=== PATIENT | female | born 1985 ===

== ENCOUNTER 2017-02-19 16:20 | Emergency (ER) | payer OTHER ==
[2017-02-19 16:41] VITALS: PULSE 115; RESP 18; O2SAT 98
--- NOTE | 2017-02-19 16:53 | ED PDOC ---
HPI: CCC, URI, Sore Throat Time Seen by Provider: 02/19/17 16:35 Chief Complaint (Provider): sore throat History Per: Patient History/Exam Limitations: no limitations Have you had recent travel within the past 21 days to any of the following countries: [place], [place], [place] or [place]?: No Onset/Duration Of Symptoms: Days (x 3) Current Symptoms Are (Timing): Still Present Sick Contacts (Context): None Associated Symptoms: Fever, Chills, Sore Throat. denies: Cough, Sputum, Nausea , Vomiting Additional Complaint(s): Lenka Guardado is a 31 year old female, with no previous medical history, who presents to the ED with complaints of a sore throat accompanied by fever and chills ongoing for 3 days. Patient denies any vomiting. Of note, patient reports no menstrual cycle for the past 2 months but is negative according to home test. PMD: none provided Past Medical History Reviewed: Historical Data, Nursing Documentation, Vital Signs Vital Signs: Last Vital Signs Temp 99.7 F H 02/19/17 18:21 Pulse 115 H 02/19/17 16:38 Resp 18 02/19/17 16:38 BP 150/99 H 02/19/17 17:00 Pulse Ox 98 02/19/17 16:38 - Medical History PMH: No Chronic Diseases - Surgical History Surgical History: No Surg Hx - Family History Family History: States: Unknown Family Hx - Home Medications Home Medications: Ambulatory Orders Medication Instructions Recorded Polymyxin/Trimethoprim Sulfate 100 drop OD BID #1 bottle 02/05/17 [Polytrim Ophth Soln] Acetaminophen [Acetaminophen Extra 2 tab PO Q6 PRN #24 tablet 02/19/17 Strength] Ibuprofen [Motrin] 600 mg PO Q8 PRN #21 tab 02/19/17 Penicillin VK [Pen-Vee K] 1 tab PO QID #40 tab 02/19/17 - Allergies Allergies/Adverse Reactions: Allergies Allergy/AdvReac Type Severity Reaction Status Date / Time No Known Allergies Allergy Verified 02/05/17 21:33 Review of Systems ROS Statement: Except As Marked, All Systems Reviewed And Found Negative Constitutional: Positive for: Fever, Chills ENT: Positive for: Throat Pain Gastrointestinal: Negative for: Vomiting Physical Exam - Reviewed Nursing Documentation Reviewed: Yes Vital Signs Reviewed: Yes - Physical Exam Appears: Positive for: Well, Non-toxic, No Acute Distress Skin: Positive for: Normal Color, Warm, Dry ENT: Positive for: Pharyngeal Erythema, Tonsillar Exudate (small on the left tonisl), Tonsillar Swelling Cardiovascular/Chest: Positive for: Regular Rate, Rhythm Respiratory: Positive for: CNT, Normal Breath Sounds Neurologic/Psych: Positive for: Alert, Oriented - Laboratory Results Urine POC: Negative - Progress ED Course And Treament: RAPID STREP: POS DECADRON 10MG IM X 1 DOSE MOTRIN 600 MG X 1 DOSE BP: 150/99 Medical Decision Making Medical Decision Making: Initial Impression: sore throat Initial Plan: * urine * rapid strep * decadron injection * motrin * reevaluation Scribe Attestation: Documented by Libby Tariq, acting as a scribe for Courtney Parr PA-C. Provider Scribe Attestation: All medical record entries made by the Scribe were at my direction and personally dictated by me. I have reviewed the chart and agree that the record accurately reflects my personal performance of the history, physical exam, medical decision making, and the department course for this patient. I have also personally directed, reviewed, and agree with the discharge instructions and disposition. Disposition - Clinical Impression Clinical Impression: Pharyngitis - Patient ED Disposition Is Patient to be Admitted: No - Disposition Referrals: [facility] [Outside] Disposition: Routine/Home Disposition Time: 18:35 Condition: FAIR Prescriptions: Acetaminophen [Acetaminophen Extra Strength] 2 tab PO Q6 PRN #24 tablet PRN Reason: Fever >100.4 F Ibuprofen [Motrin] 600 mg PO Q8 PRN #21 tab PRN Reason: Fever >100.4 F Penicillin VK [Pen-Vee K] 1 tab PO QID #40 tab Instructions: Pharyngitis (ED) Print Language: SETSWANA
[2017-02-19 18:22] VITALS: TEMP 99.7
[2017-02-19 18:37] VITALS: BP 150/99
== END 2017-02-19 18:41 | disposition home or self-care (01) ==
LOC: H.ER 16:20
DX: J02.0 Streptococcal pharyngitis (principal); R50.9 Fever, unspecified

== ENCOUNTER 2017-09-05 16:52 | Inpatient (IN) | payer OTHER ==
--- NOTE | 2017-09-05 17:55 | ED PDOC ---
HPI: Abdomen Time Seen by Provider: 09/05/17 17:47 Chief Complaint (Nursing): Abdominal Pain History Per: Patient Onset/Duration Of Symptoms: Days (7) Current Symptoms Are (Timing): Still Present Severity: Mild Pain Scale Rating Of: 2 Location Of Pain/Discomfort: Suprapubic Quality Of Discomfort: Unable To Describe Associated Symptoms: Nausea, Vomiting Exacerbating Factors: None Alleviating Factors: None Additional Complaint(s): Suprapubic pain assoc with nausea and vomiting x 7 days. No diarrhea or dysuria. No fever. LMP Jul 26 Abnormal Vaginal Bleeding: No Past Medical History Vital Signs: Last Vital Signs Temp 98 F 09/05/17 17:20 Pulse 68 09/05/17 17:20 Resp 20 09/05/17 17:20 BP 148/97 H 09/05/17 17:20 Pulse Ox 96 09/05/17 17:55 - Medical History PMH: No Chronic Diseases - Family History Family History: States: Unknown Family Hx - Home Medications Home Medications: Ambulatory Orders Medication Instructions Recorded Polymyxin/Trimethoprim Sulfate 100 drop OD BID #1 bottle 02/05/17 [Polytrim Ophth Soln] Acetaminophen [Acetaminophen Extra 2 tab PO Q6 PRN #24 tablet 02/19/17 Strength] Ibuprofen [Motrin] 600 mg PO Q8 PRN #21 tab 02/19/17 Penicillin VK [Pen-Vee K] 1 tab PO QID #40 tab 02/19/17 - Allergies Allergies/Adverse Reactions: Allergies Allergy/AdvReac Type Severity Reaction Status Date / Time No Known Allergies Allergy Verified 02/05/17 21:33 Review of Systems ROS Statement: Except As Marked, All Systems Reviewed And Found Negative Gastrointestinal: Positive for: Nausea, Vomiting, Abdominal Pain. Negative for : Diarrhea Genitourinary Female: Negative for: Dysuria, Frequency, Vaginal Bleeding Physical Exam - Physical Exam Appears: Positive for: Non-toxic, No Acute Distress Skin: Positive for: Normal Color, Warm, DRY Gastrointestinal/Abdominal: Positive for: Bowel Sounds, Soft. Negative for: Tenderness - Laboratory Results Result Diagrams: 09/05/17 18:10 09/05/17 18:10 - ECG O2 Sat by Pulse Oximetry: 96 Disposition - Clinical Impression Clinical Impression: Abdominal pain - Patient ED Disposition Is Patient to be Admitted: Transfer of Care - Disposition Disposition: Transfer of Care Disposition Time: 19:00 Condition: FAIR Forms: [facility] (Azeri) Patient Signed Over To: Luis Alberto Sierra
[2017-09-05 18:36] LABS: BASO # 0.1 K/uL (0.0-0.2); BASO % 1.1 % (0.0-2.0); EOS # 0.5 K/uL (0.0-0.7); EOS % 4.8 % (0.0-4.0); HEMATOCRIT 41.4 % (34.0-47.0); LYMPH # 3.5 K/uL (1.0-4.3); LYMPH % 32.7 % (20.0-40.0); MEAN CELL VOLUME 84.9 fl (81.0-99.0); MEAN CORPUSCULAR HEMOGLOBIN 27.8 pg (27.0-31.0); MEAN CORPUSCULAR HGB CONC 32.7 g/dL (33.0-37.0); MEAN PLATELET VOLUME 9.8 fl (7.2-11.7); MONO # 0.8 K/uL (0.0-0.8); MONO % 7.6 % (0.0-10.0); NEUT # 5.7 K/uL (1.8-7.0); NEUT % 53.8 % (50.0-75.0); NRBC % 0.1 % (0.0-0.0); RED CELL DISTRIBUTION WIDTH 14.3 % (11.5-14.5); WHITE BLOOD COUNT 10.7 K/uL (4.8-10.8)
[2017-09-05 18:56] LABS: ALB/GLOB RATIO 1.3 (1.0-2.1); ALKALINE PHOSPHATASE 82 U/L (38-126); ALT/SGPT 127 U/L (9-52); AST/SGOT 68 U/L (14-36); BILIRUBIN,TOTAL 0.4 mg/dl (0.2-1.3); BLOOD UREA NITROGEN 10 mg/dl (7-17); CALCIUM 9.2 mg/dL (8.4-10.2); CARBON DIOXIDE 24 mmol/L (22-30); CHLORIDE 107 mmol/L (98-107); GFR AFRICAN-AMERICAN > 60; GLUCOSE,RANDOM 107 mg/dL (65-105); POTASSIUM 4.3 MMOL/L (3.6-5.0); SODIUM 140 mmol/l (132-148); TOTAL PROTEIN 7.9 G/DL (6.3-8.2)
--- NOTE | 2017-09-05 19:07 | ED PDOC ---
- Laboratory Results Result Diagrams: 09/05/17 18:10 09/05/17 18:10 - ECG O2 Sat by Pulse Oximetry: 96 (RA) Pulse Ox Interpretation: Normal Medical Decision Making Medical Decision Makin:00 Patient signed over to me from Dr. Ferrari. Ultrasound pending. 19:59 Transvaginal ultrasound reviewed. Findings noted as follows: FINDINGS: Uterus/cervix: No acute findings. The endometrial stripe is normal in appearance and thickness with a maximal thickness of 8 mm. Right ovary: The right ovary is suboptimally visualized but grossly normal in size and appearance. Doppler imaging demonstrates vascular flow in the right ovary. No right adnexal mass is visualized. Left ovary: The left ovary is suboptimally visualized but grossly normal in size and appearance. Doppler imaging demonstrates vascular flow in the left ovary. No left adnexal mass is visualized. Free fluid: No pelvic free fluid is visualized. IMPRESSION: No evident acute abnormality 20:10 Patient reports improvement of symptoms. Labs were not clinically significant for any abnormalities. Patient is stable for discharge. Zofran prescribed. Clinical impression: nonspecific abdominal pain 20:26 Patient voices new complaint of right upper quadrant pain. Denies history of gallstones. Will give Toradol and Pepcid before discharge. Patient states that she will follow up with her PCP at [facility]. Time: 21:15 Patient reports no improvement in pain. Ordered US Abdomen and IV morphine. Time: 21:59 US Abdomen: FINDINGS: Limitations: Evaluation is limited by the patient's body habitus and by overlying bowel gas. Liver: Coarse, echogenic liver parenchyma. Hepatomegaly. No hepatic lesion is identified. Hepatopetal flow in the main portal vein. Gallbladder: The gallbladder is moderately distended. There is a 2 cm nonmobile gallstone in the gallbladder neck. Mild gallbladder wall thickening, measuring 3 mm in thickness. No evident pericholecystic fluid. Positive sonographic Galarza sign per the certified medical asst's report. Common bile duct: No biliary ductal dilation. Pancreas: No acute findings of the visualized portion of the pancreas. Right kidney: No acute findings. Aorta: The imaged abdominal aorta is normal in caliber. Inferior vena cava: The imaged IVC is normal in caliber. IMPRESSION: 1. Gallbladder findings as described above are most consistent with acute cholecystitis. 2. Hepatomegaly. Coarse, echogenic liver parenchyma is most consistent with diffuse fatty infiltration of the liver. Time: 23:10 * Patient will be admitted inpatient to Med/Surg for acute cholecystitis, under the service of Dr. Khoury. * Dr. Munoz vice president of customer service made aware of patient. * Awaiting call back from Dr. Mckinney, surgical attending on-call. * Patient started on IV zosyn. Time: 23:33 * Dr. Mckinney returned call, and is aware of patient. Scribe Attestation: Documented by Meme Harrington & Yeimi Cruz, acting as a scribes for Luis Alberto Sierra MD. Provider Scribe Attestation: All medical record entries made by the Scribe were at my direction and personally dictated by me. I have reviewed the chart and agree that the record accurately reflects my personal performance of the history, physical exam, medical decision making, and the department course for this patient. I have also personally directed, reviewed, and agree with the discharge instructions and disposition. Disposition Discussed With DrAnthony: Adrián Mckinney (Dr Blackmon) Comment: Dr Khoury aware Counseled Patient/Family Regarding: Studies Performed - Clinical Impression Clinical Impression: Cholecystitis, Cholelithiasis - POA Present On Arrival: None - Disposition Disposition: Admitted as In-Patient Disposition Time: 23:10 Condition: FAIR
[2017-09-05] MEDS ORDERED: Morphine 4 MG/ML VIAL IVP ONE (21:11)
[2017-09-05] MEDS ORDERED: Morphine 4 MG/ML VIAL ONE (21:21)
[2017-09-05] MEDS ORDERED: Piperacillin/Tazobact 3.375 GM in Sodium Chloride 0.9% 100 ML IV STA (23:11)
[2017-09-05] MEDS ORDERED: Sodium Chloride 0.9% 1,000 ML IV SCH (23:45)
--- NOTE | 2017-09-05 23:46 | CP.PCM.HP ---
History of Present Illness - History of Present Illness History of Present Illness: CC: Abd pain/suprapubic pain HPI: This is a 32 y/o female with ?cholelithiasis who presents with initially suprapubic pain, but then RUQ pain associated with n/v x 7 days. Nothing makes it better or worse. No f/c. No diarrhea. No CP/SOB. LMP Jul 26 ROS: 14 systems reviewed, negative other than HPI MHx: ?Cholelithiasis SHx: None Allergies: NKDA Medication: as per med rec Family Hx: Reviewed, no relevant findings Social Hx: Lives , no tobacco, no significant EtOH Present on Admission - Present on Admission Any Indicators Present on Admission: No Past Patient History - Past Social History Smoking Status: Never Smoked - PSYCHIATRIC Hx Substance Use: No - ANESTHESIA Hx Anesthesia: No Meds Home Medications: Home Medication List Medication Instructions Recorded Confirmed Type Ondansetron ODT [Zofran ODT] 4 mg PO Q6 PRN #16 odt 09/05/17 Rx Allergies/Adverse Reactions: Allergies Allergy/AdvReac Type Severity Reaction Status Date / Time No Known Allergies Allergy Verified 02/05/17 21:33 Physical Exam - Constitutional Appears: No Acute Distress - Head Exam Head Exam: ATRAUMATIC, NORMOCEPHALIC - Eye Exam Eye Exam: EOMI, PERRL - Neck Exam Neck exam: Positive for: Full Rom - Respiratory Exam Respiratory Exam: Clear to Auscultation Bilateral, NORMAL BREATHING PATTERN - Cardiovascular Exam Cardiovascular Exam: REGULAR RHYTHM, +S1, +S2 - GI/Abdominal Exam GI & Abdominal Exam: Normal Bowel Sounds, Soft - Extremities Exam Extremities exam: Positive for: normal inspection - Neurological Exam Neurological exam: Alert, CN II-XII Intact, Oriented x3 - Psychiatric Exam Psychiatric exam: Normal Affect, Normal Mood - Skin Skin Exam: Dry, Warm Results - Vital Signs Recent Vital Signs: Last Vital Signs Temp 98 F 09/05/17 17:20 Pulse 68 09/05/17 17:20 Resp 20 09/05/17 17:20 BP 148/97 H 09/05/17 17:20 Pulse Ox 96 09/05/17 23:42 - Labs Result Diagrams: 09/05/17 18:10 09/05/17 18:10 Labs: Laboratory Results - last 24 hr 09/05/17 09/05/17 18:10 18:10 WBC 10.7 RBC 4.87 Hgb 13.6 Hct 41.4 MCV 84.9 MCH 27.8 MCHC 32.7 L RDW 14.3 Plt Count 222 MPV 9.8 Neut % (Auto) 53.8 Lymph % (Auto) 32.7 [place] % (Auto) 7.6 Eos % (Auto) 4.8 H Baso % (Auto) 1.1 Neut # 5.7 Lymph # 3.5 [place] # 0.8 Eos # 0.5 Baso # 0.1 Sodium 140 Potassium 4.3 Chloride 107 Carbon Dioxide 24 Anion Gap 13 BUN 10 Creatinine 0.6 L Est GFR ( Amer) > 60 Est GFR (Non-Af Amer) > 60 Random Glucose 107 H Calcium 9.2 Total Bilirubin 0.4 AST 68 H ALT 127 H Alkaline Phosphatase 82 Total Protein 7.9 Albumin 4.4 Globulin 3.5 Albumin/Globulin Ratio 1.3 - Imaging and Cardiology US - abdomen Status: Image reviewed by me (FINDINGS:) Assessment & Plan (1) Abdominal pain Assessment and Plan: 32 y/o female presenting with initially suprapubic pain, but then transformed to RUQ abd pain and found to have cholecystitis. -NPO, IVF -Continue Zosyn as started in ER -Zofran for n/v, morphine IV per pain scale -Surgical consult in AM -SCDs for DVT PPx Status: Acute
[2017-09-05] MEDS ORDERED: Morphine 4 MG/ML VIAL IVP PRN ×2 (23:52)
[2017-09-06] MEDS: Piperacillin/Tazobact 3.375 GM in Sodium Chloride 0.9% 100 ML IVPB SCH ×3 (04:30→17:23)
--- NOTE | 2017-09-06 05:17 | CP.PCM.CON ---
History of Present Illness - History of Present Illness History of Present Illness: General Surgery Consult Re: cholecystitis HPI: 32F presented with initially suprapubic pain which resolved, but then began having RUQ pain. She reports a hx of cholelithiasis with 5 episodes of biliary colic in the past. Current episode is the most severe and associated with nausea and bloating. No F/C, emesis, chest pain, SOB, diarrhea, constipation, dysuria. PMH: Hx cholelithiasis PSH: Denies SH: No tobacco, EtOH, or drug use All: NKDA Meds: Denies Review of Systems - Review of Systems All systems: reviewed and no additional remarkable complaints except (as per HPI ) Past Patient History - Past Medical History & Family History Past Medical History?: No - Past Social History Smoking Status: Never Smoked - CARDIAC Hx Cardiac Disorders: No - PULMONARY Hx Respiratory Disorders: No - NEUROLOGICAL Hx Neurological Disorder: No - HEENT Hx HEENT Problems: No - RENAL Hx Chronic Kidney Disease: No - ENDOCRINE/METABOLIC Hx Endocrine Disorders: No - HEMATOLOGICAL/ONCOLOGICAL Hx Blood Disorders: No Hx AIDS: No Hx Human Immunodeficiency Virus (HIV): No - INTEGUMENTARY Hx Dermatological Problems: No - MUSCULOSKELETAL/RHEUMATOLOGICAL Hx Musculoskeletal Disorders: No Hx Falls: No - GASTROINTESTINAL Hx Gastrointestinal Disorders: No - GENITOURINARY/GYNECOLOGICAL Hx Genitourinary Disorders: No - PSYCHIATRIC Hx Psychophysiologic Disorder: No Hx Substance Use: No - SURGICAL HISTORY Hx Surgeries: No Other/Comment: NSD x4 - ANESTHESIA Hx Anesthesia: No Meds Allergies/Adverse Reactions: Allergies Allergy/AdvReac Type Severity Reaction Status Date / Time No Known Allergies Allergy Verified 02/05/17 21:33 - Medications Medications: Current Medications Sodium Chloride (Sodium Chloride 0.9%) 1,000 mls @ 125 mls/hr IV .Q8H [facility] Stop: 09/06/17 15:44 Last Admin: 09/06/17 02:13 Dose: 125 mls/hr Piperacillin Sod/Tazobactam (Sod 3.375 gm/ Sodium Chloride) 100 mls @ 100 mls/ hr IVPB Q6 DELLA PRN Reason: Protocol Last Admin: 09/06/17 04:30 Dose: 100 mls/hr Influenza Virus Vaccine (Afluria (Pf)(18yr & Older)) 0.5 ml IM .ONCE ONE Stop: 09/06/17 10:01 Morphine Sulfate (Morphine) 1 mg IVP Q4 PRN PRN Reason: Pain, Mild (1-3) Morphine Sulfate (Morphine) 2 mg IVP Q4 PRN PRN Reason: Pain, moderate (4-7) Ondansetron HCl (Zofran Inj) 4 mg IVP Q6 PRN PRN Reason: Nausea/Vomiting Physical Exam - Constitutional Appears: Non-toxic, No Acute Distress - Head Exam Head Exam: ATRAUMATIC, NORMOCEPHALIC - Eye Exam Eye Exam: EOMI. absent: Scleral icterus - ENT Exam ENT Exam: Mucous Membranes Moist Additional comments: trachea midline - Respiratory Exam Respiratory Exam: NORMAL BREATHING PATTERN. absent: Respiratory Distress - GI/Abdominal Exam GI & Abdominal Exam: Distended (mild), Guarding, Soft, Tenderness (in RUQ and epigastrum). absent: Firm, Rebound, Rigid - Rectal Exam Rectal Exam: Deferred - Extremities Exam Extremities exam: Positive for: normal capillary refill. Negative for: calf tenderness - Back Exam Back exam: absent: CVA tenderness (L), CVA tenderness (R) - Neurological Exam Neurological exam: Alert, Oriented x3 - Psychiatric Exam Psychiatric exam: Normal Affect, Normal Mood - Skin Skin Exam: Dry, Warm Results - Vital Signs Recent Vital Signs: Last Vital Signs Temp 97.6 F 09/06/17 01:55 Pulse 69 09/06/17 01:55 Resp 17 09/06/17 02:01 BP 127/73 09/06/17 01:55 Pulse Ox 96 09/06/17 04:18 - Labs Result Diagrams: 09/05/17 18:10 09/05/17 18:10 Labs: Laboratory Results - last 24 hr 09/05/17 09/05/17 09/06/17 18:10 18:10 00:44 WBC 10.7 RBC 4.87 Hgb 13.6 Hct 41.4 MCV 84.9 MCH 27.8 MCHC 32.7 L RDW 14.3 Plt Count 222 MPV 9.8 Neut % (Auto) 53.8 Lymph % (Auto) 32.7 [place] % (Auto) 7.6 Eos % (Auto) 4.8 H Baso % (Auto) 1.1 Neut # 5.7 Lymph # 3.5 [place] # 0.8 Eos # 0.5 Baso # 0.1 Sodium 140 Potassium 4.3 Chloride 107 Carbon Dioxide 24 Anion Gap 13 BUN 10 Creatinine 0.6 L Est GFR ( Amer) > 60 Est GFR (Non-Af Amer) > 60 Random Glucose 107 H Lactic Acid 1.4 Calcium 9.2 Total Bilirubin 0.4 AST 68 H ALT 127 H Alkaline Phosphatase 82 Total Protein 7.9 Albumin 4.4 Globulin 3.5 Albumin/Globulin Ratio 1.3 - Imaging and Cardiology US - abdomen Status: Image reviewed by me (reviwed prelim report) Assessment & Plan - Assessment and Plan (Free Text) Assessment: 32F with Cholelithiasis and biliary colic Plan: NPO IVF Analgesia Antiemetic Will D/W Dr. Hakn Blackmon PGY4
[2017-09-06 07:08] LABS: HEMATOCRIT 39.6 % (34.0-47.0); MEAN CELL VOLUME 84.5 fl (81.0-99.0); MEAN CORPUSCULAR HEMOGLOBIN 27.4 pg (27.0-31.0); MEAN CORPUSCULAR HGB CONC 32.4 g/dL (33.0-37.0); WHITE BLOOD COUNT 9.2 K/uL (4.8-10.8)
[2017-09-06 07:34] LABS: PARTIAL THROMBOPLASTIN TIME 28.8 Seconds (25.6-37.1)
[2017-09-06 07:40] LABS: ALB/GLOB RATIO 1.2 (1.0-2.1); ALKALINE PHOSPHATASE 72 U/L (38-126); ALT/SGPT 107 U/L (9-52); AST/SGOT 51 U/L (14-36); BILIRUBIN,TOTAL 0.8 mg/dl (0.2-1.3); BLOOD UREA NITROGEN 11 mg/dl (7-17); CALCIUM 8.5 mg/dL (8.4-10.2); CARBON DIOXIDE 24 mmol/L (22-30); CHLORIDE 108 mmol/L (98-107); GFR AFRICAN-AMERICAN > 60; GLUCOSE,RANDOM 110 mg/dL (65-105); POTASSIUM 4.1 MMOL/L (3.6-5.0); SODIUM 141 mmol/l (132-148); TOTAL PROTEIN 7.2 G/DL (6.3-8.2)
--- NOTE | 2017-09-06 08:58 | US ---
HISTORY: abd pain COMPARISON: None available. TECHNIQUE: Grayscale, color Doppler and spectral evaluation of the pelvis performed transvaginally. FINDINGS: UTERUS: Measures 9.4 x 4.9 x 5.4 cm. Anteverted. Normal in size and appearance. No fibroid or other mass lesion seen. ENDOMETRIUM: Measures 8 mm in diameter. Unremarkable. CERVIX: No cervical abnormality identified. RIGHT OVARY: Measures 3.0 x 1.3 x 1.3 cm. No solid mass. Normal flow. LEFT OVARY: Measures 2.3 x 2.2 x 1.0 cm. No solid mass. Normal flow. FREE FLUID: No significant free fluid noted. OTHER FINDINGS: None. IMPRESSION: Unremarkable pelvic ultrasound.
--- NOTE | 2017-09-06 09:04 | US ---
HISTORY: RUQ pain COMPARISON: None. TECHNIQUE: Sonographic evaluation of the right upper quadrant of the abdomen. FINDINGS: LIVER: Enlarged, measuring 21.4 cm in length. Increased echogenicity of the liver parenchyma. No mass. No intrahepatic bile duct dilatation. GALLBLADDER: Non mobile gallstone in the gallbladder neck measuring approximately 2.0 centimeter. Borderline wall thickening. Sonographic Galarza sign was elicited. COMMON BILE DUCT: Measures 4 mm. No stones. No dilatation. PANCREAS: Unremarkable as visualized. No mass. No ductal dilatation. RIGHT KIDNEY: Measures 11.1 x 4.0 x 3.1 cm in length. Normal echogenicity. No calculus, mass, or hydronephrosis. AORTA: No aneurysmal dilatation. IVC: Unremarkable. OTHER FINDINGS: None . IMPRESSION: Acute cholecystitis. Hepatomegaly with steatosis.
[2017-09-06] MEDS ORDERED: Influenza Vaccine 18yr & older 0.5 ML/45 MCG SYR IM ONE (10:00)
[2017-09-06] MEDS ORDERED: Rocuronium 10 mg/ml (5 ml) ONE (12:18)
[2017-09-06] MEDS ORDERED: Propofol 10 mg/ml Inj (20 ML) ONE (12:18)
[2017-09-06] MEDS ORDERED: Lidocaine 4% (Laryng-O-Jet) Kit MM ONE (12:18)
[2017-09-06] MEDS ORDERED: Succinylcholine 200 mg/10 ml Inj IV ONE (12:18)
--- NOTE | 2017-09-06 12:37 | CP.PCM.PN ---
Subjective - Date & Time of Evaluation Date of Evaluation: 09/06/17 Time of Evaluation: 14:30 - Subjective Subjective: Patient seen and examined post op . Still under anesthesia s/p lap cholecystectomy Hemodynamically stable Objective - Vital Signs/Intake and Output Vital Signs (last 24 hours): Temp Pulse Resp BP Pulse Ox 98.1 F 62 18 116/71 96 09/06/17 08:28 09/06/17 08:28 09/06/17 08:28 09/06/17 08:28 09/06/17 08:28 - Medications Medications: Current Medications Sodium Chloride (Sodium Chloride 0.9%) 1,000 mls @ 125 mls/hr IV .Q8H DELLA Stop: 09/06/17 15:44 Last Admin: 09/06/17 02:13 Dose: 125 mls/hr Piperacillin Sod/Tazobactam (Sod 3.375 gm/ Sodium Chloride) 100 mls @ 100 mls/ hr IVPB Q6 DELLA PRN Reason: Protocol Last Admin: 09/06/17 12:15 Dose: 100 mls/hr Morphine Sulfate (Morphine) 1 mg IVP Q4 PRN PRN Reason: Pain, Mild (1-3) Morphine Sulfate (Morphine) 2 mg IVP Q4 PRN PRN Reason: Pain, moderate (4-7) Ondansetron HCl (Zofran Inj) 4 mg IVP Q6 PRN PRN Reason: Nausea/Vomiting - Labs Labs: 09/06/17 06:15 09/06/17 06:15 PT 11.3 Seconds (9.8-13.1) 09/06/17 06:15 INR 1.0 (0.9-1.2) 09/06/17 06:15 APTT 28.8 Seconds (25.6-37.1) 09/06/17 06:15 - Constitutional Appears: Non-toxic, No Acute Distress - Head Exam Head Exam: ATRAUMATIC, NORMAL INSPECTION, NORMOCEPHALIC - Eye Exam Eye Exam: EOMI, Normal appearance, PERRL Pupil Exam: NORMAL ACCOMODATION - ENT Exam ENT Exam: Mucous Membranes Moist, Normal Exam - Neck Exam Neck Exam: Full ROM, Normal Inspection - Respiratory Exam Respiratory Exam: Clear to Ausculation Bilateral, NORMAL BREATHING PATTERN. absent: Rales, Rhonchi, Wheezes - Cardiovascular Exam Cardiovascular Exam: REGULAR RHYTHM, RRR, +S1, +S2. absent: JVD - GI/Abdominal Exam GI & Abdominal Exam: Soft, Normal Bowel Sounds. absent: Distended, Guarding, Tenderness, Rebound - Rectal Exam Rectal Exam: Deferred - Extremities Exam Extremities Exam: Full ROM, Normal Capillary Refill, Normal Inspection - Back Exam Back Exam: NORMAL INSPECTION - Neurological Exam Neurological Exam: Alert, Awake - Psychiatric Exam Psychiatric exam: Normal Affect - Skin Skin Exam: Dry, Intact, Normal Color, Warm Assessment and Plan - Assessment and Plan (Free Text) Assessment: 32 y/o female with no PMH presented with initially suprapubic pain, but then transformed to RUQ abd pain and found to have cholecystitis.Surgery consulted and patient underwent lap cholecystectomy 1. Cholelithiasis and acute cholecystitis s/p lap cholecystectomy continue pain management Start low fat diet , ambulation , incentive spirometry use SCD for DVt prophylaxis
[2017-09-06] MEDS ORDERED: Lidocaine 1% Inj (20ml) ONE (13:19)
[2017-09-06] MEDS ORDERED: Bupivacaine 0.5% Inj(30mL) ONE (13:19)
[2017-09-06] MEDS ORDERED: ceFAZolin IV 1 gm in Dextrose 0 GM/0 ML BAG IVPB ONE (13:19)
[2017-09-06] MEDS ORDERED: Lactated Ringer's 1,000 ML IV ONE ×2 (13:22→14:00)
[2017-09-06] MEDS ORDERED: Midazolam 2 MG/2 ML VIAL ONE (13:24)
[2017-09-06] MEDS ORDERED: Dexamethasone 4 mg/1 ml ONE (13:38)
[2017-09-06] MEDS ORDERED: Neostigmine Methylsulfate 3mg/3ml Syringe IV ONE (14:19)
[2017-09-06] MEDS ORDERED: Neostigmine Methylsulfate 2 MG/2 ML ML IV ONE (14:19)
[2017-09-06] MEDS ORDERED: Desflurane Inhalation Anesthetic Liq (240 ml) ONE (14:30)
[2017-09-06] MEDS ORDERED: Morphine 4 MG/ML VIAL IVP PRN (14:55)
[2017-09-06] MEDS ORDERED: Oxycodone/Acetaminophen 5/325 mg Tab PO PRN (14:55)
[2017-09-06] MEDS ORDERED: Sodium Chloride 0.9% 1,000 ML IV SCH (14:56)
--- NOTE | 2017-09-06 14:57 | PCM.SURG1 ---
Surgeon's Initial Post Op Note - Surgeon's Notes Surgeon: Dr. Mckinney Pet Nutrition Specialist: Dr. Gleason PGY-3, Dr. Muller PGY-1 Type of Anesthesia: General Endo Pre-Operative Diagnosis: Acute cholecystitis Operative Findings: cholelithiasis in neck Post-Operative Diagnosis: Acute cholecystitis Operation Performed: Laparoscopic cholecystectomy Specimen/Specimens Removed: gallbladder Estimated Blood Loss: EBL {In ML}: 15 Blood Products Given: N/A Drains Used: No Drains Post-Op Condition: Fair Date of Surgery/Procedure: 09/06/17 Time of Surgery/Procedure: 14:58
[2017-09-06] MEDS ORDERED: HYDROmorphone 0.5 mg/0.5 ml ISec IVP PRN (14:58)
[2017-09-06] MEDS ORDERED: Dexamethasone 4 mg/1 ml IVP PRN (14:58)
[2017-09-06] MEDS ORDERED: Lactated Ringer's 1,000 ML IV SCH (15:00)
--- NOTE | 2017-09-06 19:49 | CP.PCM.DIS ---
Provider - Provider Date of Admission: 09/05/17 23:10 Attending physician: Rhonda Khoury MD Primary care physician: None Consults: surgery consult Time Spent in preparation of Discharge (in minutes): 10 Hospital Course - Lab Results Lab Results: Most Recent Lab Values WBC 9.2 K/uL (4.8-10.8) 09/06/17 06:15 RBC 4.69 Mil/uL (3.80-5.20) 09/06/17 06:15 Hgb 12.9 g/dL (12.0-16.0) 09/06/17 06:15 Hct 39.6 % (34.0-47.0) 09/06/17 06:15 MCV 84.5 fl (81.0-99.0) 09/06/17 06:15 MCH 27.4 pg (27.0-31.0) 09/06/17 06:15 MCHC 32.4 g/dL (33.0-37.0) L 09/06/17 06:15 RDW 14.0 % (11.5-14.5) 09/06/17 06:15 Plt Count 200 K/uL (130-400) 09/06/17 06:15 MPV 9.8 fl (7.2-11.7) 09/05/17 18:10 Neut % (Auto) 53.8 % (50.0-75.0) 09/05/17 18:10 Lymph % (Auto) 32.7 % (20.0-40.0) 09/05/17 18:10 [place] % (Auto) 7.6 % (0.0-10.0) 09/05/17 18:10 Eos % (Auto) 4.8 % (0.0-4.0) H 09/05/17 18:10 Baso % (Auto) 1.1 % (0.0-2.0) 09/05/17 18:10 Neut # 5.7 K/uL (1.8-7.0) 09/05/17 18:10 Lymph # 3.5 K/uL (1.0-4.3) 09/05/17 18:10 [place] # 0.8 K/uL (0.0-0.8) 09/05/17 18:10 Eos # 0.5 K/uL (0.0-0.7) 09/05/17 18:10 Baso # 0.1 K/uL (0.0-0.2) 09/05/17 18:10 PT 11.3 Seconds (9.8-13.1) 09/06/17 06:15 INR 1.0 (0.9-1.2) 09/06/17 06:15 APTT 28.8 Seconds (25.6-37.1) 09/06/17 06:15 Sodium 141 mmol/l (132-148) 09/06/17 06:15 Potassium 4.1 MMOL/L (3.6-5.0) 09/06/17 06:15 Chloride 108 mmol/L (98-107) H 09/06/17 06:15 Carbon Dioxide 24 mmol/L (22-30) 09/06/17 06:15 Anion Gap 13 (10-20) 09/06/17 06:15 BUN 11 mg/dl (7-17) 09/06/17 06:15 Creatinine 0.8 mg/dl (0.7-1.2) 09/06/17 06:15 Est GFR ( Amer) > 60 09/06/17 06:15 Est GFR (Non-Af Amer) > 60 09/06/17 06:15 Random Glucose 110 mg/dL (65-105) H 09/06/17 06:15 Lactic Acid 1.4 MMOL/L (0.7-2.1) 09/06/17 00:44 Calcium 8.5 mg/dL (8.4-10.2) 09/06/17 06:15 Total Bilirubin 0.8 mg/dl (0.2-1.3) 09/06/17 06:15 AST 51 U/L (14-36) H D 09/06/17 06:15 ALT 107 U/L (9-52) H 09/06/17 06:15 Alkaline Phosphatase 72 U/L (38-126) 09/06/17 06:15 Total Protein 7.2 G/DL (6.3-8.2) 09/06/17 06:15 Albumin 3.9 g/dL (3.5-5.0) 09/06/17 06:15 Globulin 3.3 gm/dL (2.2-3.9) 09/06/17 06:15 Albumin/Globulin Ratio 1.2 (1.0-2.1) 09/06/17 06:15 Blood Type O POSITIVE 09/06/17 12:59 Blood Type Confirm O POSITIVE 09/06/17 14:03 Antibody Screen Negative 09/06/17 12:59 BBK History Checked No verified bt 09/06/17 12:59 - Hospital Course Hospital Course: 32 y/o female with no PMH presented with initially suprapubic pain, but then transformed to RUQ abd pain and found to have cholecystitis.Surgery consulted and patient underwent lap cholecystectomy. At present Hemoddynamically stable, afebrile, voiding freely, no abdominal pain , tolerating Po intake and ambulating freely patient would like to go home. Will discharge patient home on PO Percoset PRN for pain control no antibiotics necessary 1. Cholelithiasis and acute cholecystitis Discharge Exam - Head Exam Head Exam: ATRAUMATIC, NORMAL INSPECTION, NORMOCEPHALIC - Eye Exam Eye Exam: EOMI, Normal appearance, PERRL Pupil Exam: NORMAL ACCOMODATION - ENT Exam ENT Exam: Mucous Membranes Moist, Normal Exam - Neck Exam Neck exam: Full Rom, Normal Inspection - Respiratory Exam Respiratory Exam: Clear to PA & Lateral, NORMAL BREATHING PATTERN. absent: Rales, Rhonchi, Wheezes - Cardiovascular Exam Cardiovascular Exam: REGULAR RHYTHM, RRR, +S1, +S2. absent: JVD - GI/Abdominal Exam GI & Abdominal Exam: Normal Bowel Sounds, Soft. absent: Distended, Guarding, Rebound, Tenderness - Rectal Exam Rectal Exam: Deferred - Extremities Exam Extremities exam: normal capillary refill, normal inspection, pedal pulses present - Back Exam Back exam: NORMAL INSPECTION - Neurological Exam Neurological exam: Alert, CN II-XII Intact - Psychiatric Exam Psychiatric exam: Normal Affect, Normal Mood - Skin Skin Exam: Dry, Intact, Normal Color, Warm Discharge Plan - Follow Up Plan Condition: STABLE Disposition: HOME/ ROUTINE Patient education suggested?: Yes Instructions: Cholecystitis (DC) Referrals: [facility] [Outside] [facility] [Outside]
[2017-09-06 21:27] VITALS: BP 124/73; PULSE 82; RESP 20; TEMP 97.6; O2SAT 98
--- NOTE | 2017-09-07 03:39 | OP ---
PROCEDURE DATE: 09/06/2017 SURGEON: Adrián Mckinney MD CONFIGURATION MANAGEMENT ARCHITECT: Dr. Yohana Gasca TYPE OF ANESTHESIA: General. ANESTHESIA ADMINISTERED BY: Kevin Rice MD PREOPERATIVE DIAGNOSIS: Cholelithiasis. POSTOPERATIVE DIAGNOSIS: Cholelithiasis. PROCEDURE: Laparoscopic cholecystectomy. DESCRIPTION OF OPERATION: With the patient in the supine position under adequate general anesthesia, Veress needle puncture was performed at the umbilicus with insufflation to 15 cm water pressure of CO2. A 10 mm laparoscopic trocar was inserted via a supraumbilical incision, and under direct vision, additional trocars were inserted in the epigastrium and right costal margin. The area of the gallbladder was visualized. There were adhesions of the omentum to the liver edge adjacent to the gallbladder and these were sharply divided to expose the gallbladder. The gallbladder fundus was grasped and elevated. The gallbladder was soft and not acutely inflamed, although there were omental adhesions to the gallbladder consistent with recent inflammation. The adhesions were taken down to expose the infundibulum of the gallbladder. The infundibulum was grasped and retracted laterally, and the cystic duct was identified and dissected. The cystic duct was cleared down towards the junction with the common bile duct, and the cystic duct was then triply clipped and divided closer to the gallbladder. Anterior and posterior branches of the cystic artery were identified and each was triply clipped and divided, and the gallbladder was dissected free of the liver bed using electrocautery. The liver bed was examined for hemostasis and the dissection was completed. The gallbladder was placed in a specimen retrieval bag and removed via the umbilical port site. It was noted to contain a single large ovoid stone. The right upper quadrant was irrigated and suctioned. The pneumoperitoneum was released and the trocars were removed. The umbilical port site was closed with fascial sutures of 0 Vicryl. All incisions were closed with 4-0 Monocryl subcuticular sutures and Steri-Strips. Dry sterile dressings were applied. The patient tolerated the procedure well and transferred to recovery room in stable condition. Estimated blood loss for the procedure was 10 mL. Adrián Mckinney MD [facility] # [id number] MTDD
== END 2017-09-06 21:31 | disposition home or self-care (01) | DRG 494 ==
LOC: H.ER 16:52 → H.ERHOLD 23:10 → H.MEDSURG1 09-06 01:50
PROVIDERS: ADMIT Internal Medicine; ATTEND Internal Medicine
PROC: 3E0234Z Introduction of Serum, Toxoid and Vaccine into Muscle, Percutaneous Approach (ICD-10-PCS; 2017-09-06)
PROC: 0FT44ZZ Resection of Gallbladder, Percutaneous Endoscopic Approach (ICD-10-PCS; principal; 2017-09-06 13:00)
DX: K80.00 Calculus of gallbladder with acute cholecystitis without obstruction (principal); K76.0 Fatty (change of) liver, not elsewhere classified; Z23 Encounter for immunization

== ENCOUNTER 2018-04-14 05:14 | Emergency (ER) | payer SELFPAY ==
[2018-04-14 05:39] VITALS: BP 124/80; PULSE 80; RESP 16; TEMP 99.1; O2SAT 98
[2018-04-14] MEDS ORDERED: Oxycodone/Acetaminophen 5/325 mg Tab PO STA (05:50)
--- NOTE | 2018-04-14 05:52 | ED PDOC ---
HPI: CCC, URI, Sore Throat Time Seen by Provider: 04/14/18 05:50 Chief Complaint (Nursing): ENT Problem Chief Complaint (Provider): right ear pain History Per: Patient (32 y/o female here with right ear pain x 1 week. Patient feels as if she can't hear out of right ear. Patient is using drops she bought at the pharmacy not helping with symptoms.) Past Medical History Reviewed: Historical Data, Nursing Documentation, Vital Signs Vital Signs: Last Vital Signs Temp 99.1 F 04/14/18 05:35 Pulse 80 04/14/18 05:35 Resp 16 04/14/18 05:35 BP 124/80 04/14/18 05:35 Pulse Ox 98 04/14/18 05:35 - Medical History PMH: Denies: HIV, Chronic Kidney Disease - Family History Family History: States: Unknown Family Hx - Home Medications Home Medications: Ambulatory Orders Medication Instructions Recorded oxyCODONE/Acetaminophen [Percocet 1 tab PO Q4 PRN tab 09/06/17 5/325 mg Tab] Naproxen 375 mg PO Q8 PRN #21 tablet 04/14/18 Neomycin/Polymyxin/Hydrocortis 4 drop TOP QID #1 bottle 04/14/18 [Cortisporin Otic Susp] - Allergies Allergies/Adverse Reactions: Allergies Allergy/AdvReac Type Severity Reaction Status Date / Time No Known Allergies Allergy Verified 02/05/17 21:33 Review of Systems ROS Statement: Except As Marked, All Systems Reviewed And Found Negative ENT: Positive for: Ear Pain Physical Exam - Reviewed Nursing Documentation Reviewed: Yes Vital Signs Reviewed: Yes - Physical Exam Appears: Positive for: Well, Non-toxic, No Acute Distress Head Exam: Positive for: ATRAUMATIC, NORMAL INSPECTION, NORMOCEPHALIC Skin: Positive for: Normal Color, Warm, DRY Eye Exam: Positive for: EOMI, Normal appearance, PERRL ENT: Positive for: Other (right ear tragal tenderness; moderate swelling external ear canal. TM noted not erythematous.). Negative for: Normal ENT Inspection Neck: Positive for: Normal, Painless ROM Cardiovascular/Chest: Positive for: Regular Rate, Rhythm Respiratory: Positive for: CNT, Normal Breath Sounds Gastrointestinal/Abdominal: Positive for: Normal Exam, Soft Back: Positive for: Normal Inspection Extremity: Positive for: Normal ROM Neurologic/Psych: Positive for: Alert, Oriented - ECG O2 Sat by Pulse Oximetry: 98 - Progress ED Course And Treament: percocet 5/325 mg x 1 dose zofran 4 mg odt x 1 dose Disposition - Clinical Impression Clinical Impression: Otitis externa of right ear - Patient ED Disposition Is Patient to be Admitted: No - Disposition Referrals: Kg Olea MD [Staff Provider] - [facility] [Outside] Disposition: Routine/Home Disposition Time: 05:56 Condition: FAIR Prescriptions: Naproxen 375 mg PO Q8 PRN #21 tablet PRN Reason: Pain, Moderate (4-7) Neomycin/Polymyxin/Hydrocortis [Cortisporin Otic Susp] 4 drop TOP QID #1 bottle Instructions: Outer Ear Infection (DC) Forms: [facility] ED School/Work Excuse Print Language: CONGOLESE
== END 2018-04-14 06:39 | disposition home or self-care (01) ==
LOC: H.ER 05:14
DX: H60.91 Unspecified otitis externa, right ear (principal)

== ENCOUNTER 2018-12-25 07:58 | Emergency (ER) | payer OTHER ==
[2018-12-25 08:03] VITALS: BMI 41.7
[2018-12-25 08:04] VITALS: BP 128/84; PULSE 72; RESP 18; TEMP 98.4; O2SAT 99
--- NOTE | 2018-12-25 09:02 | ED PDOC ---
HPI: CCC, URI, Sore Throat Time Seen by Provider: 12/25/18 08:22 Chief Complaint (Nursing): ENT Problem Chief Complaint (Provider): ENT Problem History Per: Patient History/Exam Limitations: no limitations Onset/Duration Of Symptoms: Days (x14) Current Symptoms Are (Timing): Still Present Location Of Pain: Throat Additional Complaint(s): 33 y/o female with no significant PMHx presents to the ED for evaluation of throat pain associated with a foreign body sensation, ongoing since onset for the past two weeks. Patient describes foreign body sensation as a fishbone stuck to the right side of her throat. Patient reports pain is associated with difficulty swallowing. Patient notes of eating soft foods since onset. Patient states symptoms persist and are worsening thus prompting today's visit. Otherwise, patient denies fever, chest pain, hemoptysis, neck swelling and any prior history of throat or swallowing abnormality. PMD: [facility] Past Medical History Reviewed: Historical Data, Nursing Documentation, Vital Signs Vital Signs: Last Vital Signs Temp 98.4 F 12/25/18 08:03 Pulse 72 12/25/18 08:03 Resp 18 12/25/18 08:03 BP 128/84 12/25/18 08:03 Pulse Ox 99 12/25/18 08:03 - Medical History PMH: No Chronic Diseases Denies: HIV, Chronic Kidney Disease - Surgical History Surgical History: Cholecystectomy - Family History Family History: States: Unknown Family Hx - Home Medications Home Medications: Ambulatory Orders Medication Instructions Recorded No Known Home Med 12/25/18 - Allergies Allergies/Adverse Reactions: Allergies Allergy/AdvReac Type Severity Reaction Status Date / Time No Known Allergies Allergy Verified 02/05/17 21:33 Review of Systems ROS Statement: Except As Marked, All Systems Reviewed And Found Negative ENT: Positive for: Throat Pain (with associated foreign body sensation), Other (dysphagia) Physical Exam - Reviewed Nursing Documentation Reviewed: Yes Vital Signs Reviewed: Yes - Physical Exam Appears: Positive for: No Acute Distress ENT: Positive for: Pharynx Is (Oral pharynx is poorly visualized ). Negative for: Pharyngeal Erythema, Tonsillar Exudate, Tonsillar Swelling, Other (tonsillar assymetry) Respiratory: Positive for: Normal Breath Sounds. Negative for: Accessory Muscle Use, Respiratory Distress - Laboratory Results Result Diagrams: 12/25/18 09:10 12/25/18 09:10 - ECG O2 Sat by Pulse Oximetry: 99 (RA) Pulse Ox Interpretation: Normal Medical Decision Making Medical Decision Making: Time: 0855 A/P: Workup for foreign body in throat -- CT Neck Soft Tissue w/o Contrast -- BMP -- CBC with Differentials Time: 112 PROCEDURE: CT NECK WITH CONTRAST HISTORY: fish bone stuck in throat x2 weeks COMPARISON: None TECHNIQUE: CT of the neck with intravenous contrast. Coronal and sagittal reformats generated. Intravenous contrast dose: 95 cc Omnipaque 300 Radiation dose: Total exam DLP = 322.5 mGy-cm. This CT exam was performed using one or more of the following dose reduction techniques: Automated exposure control, adjustment of the mA and/or kV according to patient size, and/or use of iterative reconstruction technique. FINDINGS: NASOPHARYNX: Unremarkable. SUPRAHYOID NECK: There is asymmetrical prominence of the left palatine tonsils. No radiopaque foreign body here or gas here is seen. Otherwise is segment is unremarkable. INFRAHYOID NECK: Unremarkable larynx, hypopharynx, and supraglottic space. Vocal cords intact. MASS: None. GLANDS: Parotid and submandibular glands unremarkable. Normal size thyroid gland, without nodule. LYMPH NODES: Normal. No lymphadenopathy. CERVICAL SPINE: No fracture or focal lesion. VASCULAR STRUCTURES: Unremarkable. OTHER FINDINGS: None. IMPRESSION: Asymmetrical prominence of the left palatine tonsils-may be lymphatic hypertrophy no abnormal gas or abscess seen here. No gross radiopaque foreign body identified. Consider ENT follow-up. Time: 1156 -- Spoke to Dr. Khoury regarding patient's case who states patient is to see him in his office now for a scope of throat. Patient given instruction in Polish including address. Explained using [employer] Paper Pattern Folder Luciano. Scribe Attestation: Documented by Madeline Mills, acting as a scribe Freedom Caldwell DO. Provider Scribe Attestation: All medical record entries made by the Scribe were at my direction and personally dictated by me. I have reviewed the chart and agree that the record accurately reflects my personal performance of the history, physical exam, medi freedom decision making, and the department course for this patient. I have also personally directed, reviewed, and agree with the discharge instructions and disposition.v Disposition - Clinical Impression Clinical Impression: Foreign body in throat - Patient ED Disposition Is Patient to be Admitted: No Counseled Patient/Family Regarding: Studies Performed, Diagnosis, Need For Followup - Disposition Referrals: Theo Khoury MD [Staff Provider] - Disposition: Routine/Home Disposition Time: 11:59 Condition: STABLE Additional Instructions: Go to Dr Khoury's office NOW for scope of throat. Address: [address] [place] [address] Instructions: Foreign Body, Swallowed, Adult Forms: [facility] (Syrian)
[2018-12-25 09:29] LABS: BASO % 0.5 % (0.0-2.0); EOS # 0.5 K/uL (0.0-0.7); EOS % 6.6 % (0.0-4.0); HEMOGLOBIN 13.5 g/dL (12.0-16.0); LYMPH # 3.1 K/uL (1.0-4.3); LYMPH % 40.2 % (20.0-40.0); MEAN CELL VOLUME 83.3 fl (81.0-99.0); MEAN CORPUSCULAR HEMOGLOBIN 27.2 pg (27.0-31.0); MEAN CORPUSCULAR HGB CONC 32.6 g/dL (33.0-37.0); MEAN PLATELET VOLUME 9.7 fl (7.2-11.7); MONO # 0.5 K/uL (0.0-0.8); MONO % 6.8 % (0.0-10.0); NEUT # 3.5 K/uL (1.8-7.0); NEUT % 45.9 % (50.0-75.0); NRBC % 0.2 % (0.0-0.0); RBC 4.97 Mil/uL (3.80-5.20); RED CELL DISTRIBUTION WIDTH 13.9 % (11.5-14.5); WHITE BLOOD COUNT 7.6 K/uL (4.8-10.8)
[2018-12-25 09:37] LABS: BLOOD UREA NITROGEN 8 mg/dl (7-17); GFR NON-AFRICAN AMERICAN > 60
[2018-12-25] MEDS ORDERED: Sodium Chloride 0.9% 50 ML IV ONE (10:16)
[2018-12-25] MEDS ORDERED: Iohexol 300 100 ML IJ ONE (10:16)
--- NOTE | 2018-12-25 11:31 | CT ---
Date of service: 12/25/2018 PROCEDURE: CT NECK WITH CONTRAST HISTORY: fish bone stuck in throat x2 weeks COMPARISON: None TECHNIQUE: CT of the neck with intravenous contrast. Coronal and sagittal reformats generated. Intravenous contrast dose: 95 cc Omnipaque 300 Radiation dose: Total exam DLP = 322.5 mGy-cm. This CT exam was performed using one or more of the following dose reduction techniques: Automated exposure control, adjustment of the mA and/or kV according to patient size, and/or use of iterative reconstruction technique. FINDINGS: NASOPHARYNX: Unremarkable. SUPRAHYOID NECK: There is asymmetrical prominence of the left palatine tonsils. No radiopaque foreign body here or gas here is seen. Otherwise is segment is unremarkable. INFRAHYOID NECK: Unremarkable larynx, hypopharynx, and supraglottic space. Vocal cords intact. MASS: None. GLANDS: Parotid and submandibular glands unremarkable. Normal size thyroid gland, without nodule. LYMPH NODES: Normal. No lymphadenopathy. CERVICAL SPINE: No fracture or focal lesion. VASCULAR STRUCTURES: Unremarkable. OTHER FINDINGS: None. IMPRESSION: Asymmetrical prominence of the left palatine tonsils-may be lymphatic hypertrophy no abnormal gas or abscess seen here. No gross radiopaque foreign body identified. Consider ENT follow-up.
== END 2018-12-25 12:20 | disposition home or self-care (01) ==
LOC: H.ER 07:58
DX: T17.208A Unspecified foreign body in pharynx causing other injury, initial encounter (principal)
CPT/HCPCS: 70491; 80048; 81025; 85025; 99282; Q9967